=== PATIENT | female | born 1945 | race Caucasian/White ===

== ENCOUNTER 2017-03-24 10:53 | Day surgery (SDC) | payer OTHER, MEDICARE ==
[~2017-03-24] VITALS: Ht 157.5 cm; Wt 59.0 kg
[~2017-03-24 10:53] MED LIST: ADULT LOW DOSE81 M1; ARICEPT10 MG PO; CALCIUM + D3 E1 EACH PO; CALCIUM 600 MG1 EACH; CELEXA40 MG; COZAAR25 MG PO; KLONOPIN0.5 M1 PO; LEVAQUIN500 MG PO; LIPITOR20 MG PO; LISINOPRIL5 MG PO; LORTAB 5-500 T1 EACH PO; LOVAZA1 GM PO; METFORMIN HCL1000 MG; NAPROSYN500 MG PO; NEURONTIN300 MG PO; OMEPRAZOLE20 MG; PERCOCET 5/31 TABLET PO; PREDNISONE50 MG PO; ROBITUSSIN AC,T10 ML PO; TRAMADOL HCL50 MG; TYLENOL WITH C1 EACH PO; WELCHOL625 MG; XALATAN2.5 ML BOTH EYES; ZANTAC150 MG PO; ZOFRAN4 MG PO; ZYBAN 150 MG T150 MG PO
[2017-03-24 11:42] VITALS: BP 178/76
[2017-03-24 12:40] LABS: METH RESISTANT S AUREUS PCR NEGATIVE (NEGATIVE)
[2017-03-24 12:42] LABS: PROBE CHECK PASS; SPECIMEN PROCESSING CONTROL PASS
[2017-03-24 15:10] VITALS: BP 145/70
[2017-03-24 16:18] VITALS: BP 117/64
== END 2017-03-24 16:28 | disposition home or self-care (01) ==
LOC: SDC 10:53
PROVIDERS: Orthopaedic Surgery
PROC: 0QPJ04Z Removal of Internal Fixation Device from Right Fibula, Open Approach (ICD-10-PCS; principal; 2017-03-24)
DX: T84.84XA Pain due to internal orthopedic prosthetic devices, implants and grafts, initial encounter (principal); Y83.1 Surgical operation with implant of artificial internal device as the cause of abnormal reaction of the patient, or of later complication, without mention of misadventure at the time of the procedure; J44.9 Chronic obstructive pulmonary disease, unspecified; K21.9 Gastro-esophageal reflux disease without esophagitis; Z88.0 Allergy status to penicillin; Z87.891 Personal history of nicotine dependence
CPT/HCPCS: 87641; J1100; J2405; J3010; S0020